=== PATIENT | female | born 1950 | race Caucasian/White ===

== ENCOUNTER 2016-10-24 10:13 | Inpatient (IN) | payer MEDICARE, OTHER ==
[~2016-10-24 10:13] MED LIST: ACETAMINOPHEN 1,000 MG/100 ML BTL IV ONE; BUPIVACAINE 0.5% W/EPI MPF 30 ML VIAL IVP ONE; BUPIVACAINE LIPOSOME 266MG/20ML VIAL IV ONE; CELECOXIB 100 MG CAPSULE PO ONE; FAMOTIDINE 20MG TABLET PO ONE; MECLIZINE 25 MG TABLET PO ONE; METOCLOPRAMIDE 10 MG TABLET PO ONE; TRANEXAMIC ACID 1,000 MG/10 ML ML IV ONE; VANCOMYCIN HCL 1 GM VIAL IVPB ONE; VANCOMYCIN HCL 1,000 MG in 0.9 % SODIUM CHLORIDE 250ML 250 ML IV ONE
[2016-10-24 12:00] LABS: ABO GROUP O; ANTIBODY SCREEN NEGATIVE (NEGATIVE); RH TYPE POSITIVE
[2016-10-24] MEDS ORDERED: METOCLOPRAMIDE HCL 10 MG/2 ML VIAL IVP PRN (13:20)
[2016-10-24] MEDS ORDERED: ACETAMINOPHEN W/ CODEINE 300MG/60MG TABLET PO PRN ×2 (13:20)
[2016-10-24] MEDS ORDERED: NALOXONE 0.4 MG/1 ML VIAL IVP PRN (13:20)
[2016-10-24] MEDS ORDERED: ACETAMINOPHEN 325 MG TAB PO PRN (13:20)
[2016-10-24] MEDS ORDERED: MAGNESIUM HYDROXIDE 30 ML UDC PO PRN (13:20)
[2016-10-24] MEDS ORDERED: KETOROLAC 30 MG/ML VIAL IVP PRN ×2 (13:20)
[2016-10-24] MEDS ORDERED: BISACODYL 10 MG SUPP RC PRN (13:20)
[2016-10-24] MEDS ORDERED: ZOLPIDEM TARTRATE 5 MG TABLET PO PRN (13:20)
[2016-10-24] MEDS ORDERED: TRAMADOL HCL 50 MG TABLET PO PRN (13:20)
[2016-10-24] MEDS ORDERED: ONDANSETRON HCL IV 4 MG/2 ML VIAL IVP PRN (13:20)
[2016-10-24] MEDS ORDERED: HYDROMORPHONE HCL 1MG/ML **SYRINGE IM PRN (13:20)
[2016-10-24] MEDS ORDERED: HYDROCODONE/APAP 5/325MG TABLET PO PRN (13:20)
[2016-10-24] MEDS ORDERED: MORPHINE SULFATE 5 MG/ML PFS IVP PRN ×4 (13:20)
[2016-10-24] MEDS ORDERED: PROMETHAZINE HCL 12.5 MG in 0.9 % SODIUM CHLORIDE 100ML 50 ML IVPB PRN (13:20)
[2016-10-24] MEDS ORDERED: AL HYDROX/MAG HYDROX 30ML UD PO PRN (13:20)
[2016-10-24] MEDS ORDERED: HYDROCODONE/APAP 7.5/325MG TABLET PO PRN (13:20)
[2016-10-24] MEDS ORDERED: DIPHENHYDRAMINE HCL 25 MG CAPSULE PO PRN (13:20)
[2016-10-24] MEDS ORDERED: HYDROMORPHONE HCL 2 MG/ML VIAL IM PRN (13:20)
[2016-10-24] MEDS ORDERED: ACETAMINOPHEN W/ CODEINE 300MG/30MG TABLET PO PRN ×2 (13:20)
[2016-10-24] MEDS ORDERED: TRANEXAMIC ACID 1,000 MG/10 ML ML IV ONE (14:00)
[2016-10-24] MEDS ORDERED: PROPOFOL 10 MG/ML VIAL IV ONE (14:00)
[2016-10-24] MEDS ORDERED: VANCOMYCIN HCL 1 GM VIAL IVPB ONE (14:00)
[2016-10-24] MEDS ORDERED: MIDAZOLAM HCL 2MG/2ML VIAL IV ONE (14:00)
[2016-10-24] MEDS ORDERED: BUPIVACAINE 0.5% W/EPI MPF 30 ML VIAL IVP ONE (14:00)
[2016-10-24] MEDS ORDERED: FENTANYL PF 100MCG/2ML VIAL IV ONE (14:00)
[2016-10-24] MEDS ORDERED: HYDROMORPHONE HCL 2 MG/ML VIAL IV ONE (14:00)
[2016-10-24] MEDS ORDERED: DEXTROSE 5 % AND 0.9 % NACL 1,000 ML IV PRN (15:15)
[2016-10-24] MEDS ORDERED: FLUTICASONE PROPIONATE 50MCG NASAL 16 GM BTL PRN (15:52)
--- NOTE | 2016-10-24 17:22 | Physical Therapy Tx Note ---
Physical Therapy Tx Note - Treatment Note Physical Therapy Tx Note: Detail (Patient was seen by PT this pm and had no sensation to light touch in LE's. The patient was given a walker to use while in the hospital. Will see the patient tomorrow am.)
[2016-10-24] MEDS: BUSPIRONE 5 MG TABLET PO SCH ×2 (19:38→21:41)
[2016-10-24] MEDS ORDERED: FLU VAC QS 2017-18 (INPT, 6MO+) 60MCG/0.5ML IM ONE (19:51)
[2016-10-24] MEDS: FERROUS SULFATE 325 MG TAB PO SCH (21:39)
[2016-10-24] MEDS: DOCUSATE SODIUM 100 MG CAPSULE PO SCH (21:39)
[2016-10-24] MEDS: LORATADINE 10 MG TABLET PO SCH (21:40)
[2016-10-24] MEDS: ACYCLOVIR 200 MG CAPSULE PO SCH (21:40)
[2016-10-25] MEDS: HYDROCODONE/APAP 5/325MG TABLET PO PRN ×3 (00:56→04:49)
[2016-10-25] MEDS: VANCOMYCIN HCL 1,000 MG in 0.9 % SODIUM CHLORIDE 250ML 250 ML IVPB SCH ×2 (00:56→14:09)
[2016-10-25] MEDS: PANTOPRAZOLE SODIUM 40 MG TABLET PO SCH (06:25)
[2016-10-25 06:38] LABS: HEMATOCRIT 33.5 % (35.0-47.0); HEMOGLOBIN 10.8 gm/dl (11.6-16.0)
[2016-10-25] MEDS: HYDROCODONE/APAP 7.5/325MG TABLET PO PRN ×3 (08:23→22:06)
[2016-10-25] MEDS: ACYCLOVIR 200 MG CAPSULE PO SCH ×2 (09:46→22:08)
[2016-10-25] MEDS: DOCUSATE SODIUM 100 MG CAPSULE PO SCH ×2 (09:46→22:06)
[2016-10-25] MEDS: FERROUS SULFATE 325 MG TAB PO SCH ×2 (09:47→22:06)
[2016-10-25] MEDS: BUSPIRONE 5 MG TABLET PO SCH ×3 (09:47→22:10)
--- NOTE | 2016-10-25 09:48 | Rehab Evaluation ---
Patient Information - Patient Information Diagnosis: R TKA Ordered Treatment: PT Evaluate and Treat Status: Initial Evaluation Surgery: Yes Date of Surgery: 10/24/16 (R TKA) Past Medical/Surgical Hx: PAST MEDICAL/SURGICAL HISTORY Past Surgical History appy c section hyst left knee scope rotator cuff tonsils PMH - Respiratory Hx Respiratory Disorders Yes Hx Sleep Apnea Yes Hx of CPAP Yes PMH - Cardiovascular Hx Cardiovascular Disorders Yes Hx Hypertension Yes: meds good control Hx Irregular Heartbeat Yes Hx Heart Murmur Yes: mild Exercise Tolerance Good Comment: varicose veins PMH - Neuro Hx Neurological Disorders Yes Hx Dizziness Yes: occasionally w fast position changes( vertigo) PMH - GI Hx Gastrointestinal Disorders Yes Hx Gastroesophageal Reflux Yes: controlled w meds PMH - Hx Genitourinary Disorders Yes Hx Kidney Stones Yes: lithotripsy 6 months ago Hx Urinary Tract Infection Yes: now-taking ABX PMH - Endocrine Hx Endocrine Disorders No PMH - Musculoskeletal Hx Musculoskeletal Disorders Yes Hx Arthritis Yes PMH - Psych Hx Psychiatric Problems Yes Hx Anxiety Yes: fair control Comment: claustrophobia PMH - Hematology/Oncology Hx Hematology/Oncology No Disorders Premorbid Status: Detail (The patient was previously ambulatory without device.) Social History: Detail (The patient lives with spouse in a single story ranch home with a step, landing, then another step at the enterance with one railing within reach. The patient's bathroome is equipped with a tub/shower combination with a tub bench and a standard toilet. The patient was vended a wheeled walker and has a standard cane and crutches.) Precautions: [place], Other (WBAT R LE) - Time With Patient Total Time Spent With Patient (Min): 30 Treatment Procedures: Detail (Initial Evaluation, gait training and review of HEP in a seated position including heel slides, gluteal sets, quad sets, ankle pumps, hamstring sets all x 5 reps.) Subjective Information - Subjective Information Per Patient (The patient had complaints of R knee pain.) Objective Data - Pain Pain Present: Yes Pain Intensity: 7 Pain Scale Used: Numeric (1 - 10) - Mental Status Patient Orientation: Oriented x3 - Visual Perception Appears within normal limits for therapeutic activities - ROM Not within normal limits (The patient's R knee AROM seated was 75 degrees flexion, -15 degrees extension) - Strength/Tone Not within normal limits (The patient's LE was not formally tested but is functional. Patient was able to acheive a SLR with R LE.) - Bed Mobility Independent (Independent supine to sit transfer.) - Transfers Independent (Independent sit to stand transfer.) - Balance Balance Sitting: Good Balance Standing: Good - Gait Detail (The patient ambulated with wheeled walker a distance of 75 feet x 1 WBAT on the R LE with assist of one to handle IV only.) Therapy Assessment - Therapy Assessment Detail (Patient was independent with bed mobility and transfers and required assist with ambulation to handle equipment only. Patient will progress well with ambulation and anticipate the patient will meet PT inpatient goals in 1 to 2 visits.) Patient Education - Patient Education Teaching Topic: Equipment Use (fitted and vended walker with wheels.), Exercise/ Activity (Reviewed HEP R TKA exercises) Response: Return Demonstration Teaching Method: Demonstration Teaching Recipient: Patient Barriers To Learning: None Problem List - Problem List Physical Therapy Problem List: Detail (1) Decreased R knee AROM 2) Decreased R LE strength 3) Inablility to ambulate on stairs) Goals - Goals Physical Therapy Goals: 1) The patient will ambulate on stairs with supervision/ independent. 2) The patient will be independent with HEP Prognosis - Prognosis Good Plan - Plan Physical Therapy Plan: PT 1-2 times a day for gait training on levels and stairs , bed mobility and transfer and instruction in HEP until PT goals are met.
[2016-10-25] MEDS ORDERED: RIVAROXABAN 10 MG TABLET PO SCH (10:00)
[2016-10-25] MEDS ORDERED: CELECOXIB 100 MG CAPSULE PO SCH (10:00)
[2016-10-25] MEDS ORDERED: LISINOPRIL 20 MG TABLET PO SCH (10:00)
[2016-10-25] MEDS ORDERED: LOTEMAX EYE OPTH SCH (10:00)
[2016-10-25] MEDS: TRAMADOL HCL 50 MG TABLET PO PRN (11:23)
--- NOTE | 2016-10-25 11:36 | Rehab Evaluation ---
Patient Information - Patient Information Diagnosis: R TKA Ordered Treatment: OT Evaluate and Treat Status: Initial Evaluation Surgery: Yes Date of Surgery: 10/24/16 (R TKA) Past Medical/Surgical Hx: PAST MEDICAL/SURGICAL HISTORY Past Surgical History appy c section hyst left knee scope rotator cuff tonsils PMH - Respiratory Hx Respiratory Disorders Yes Hx Sleep Apnea Yes Hx of CPAP Yes PMH - Cardiovascular Hx Cardiovascular Disorders Yes Hx Hypertension Yes: meds good control Hx Irregular Heartbeat Yes Hx Heart Murmur Yes: mild Exercise Tolerance Good Comment: varicose veins PMH - Neuro Hx Neurological Disorders Yes Hx Dizziness Yes: occasionally w fast position changes( vertigo) PMH - GI Hx Gastrointestinal Disorders Yes Hx Gastroesophageal Reflux Yes: controlled w meds PMH - Hx Genitourinary Disorders Yes Hx Kidney Stones Yes: lithotripsy 6 months ago Hx Urinary Tract Infection Yes: now-taking ABX PMH - Endocrine Hx Endocrine Disorders No PMH - Musculoskeletal Hx Musculoskeletal Disorders Yes Hx Arthritis Yes PMH - Psych Hx Psychiatric Problems Yes Hx Anxiety Yes: fair control Comment: claustrophobia PMH - Hematology/Oncology Hx Hematology/Oncology No Disorders Premorbid Status: Detail (The patient lives with spouse in a ranch home with a basement, she stays primarily on the 1st floor. She has 3 steps and alexei handrailings although railings are far apart. She has a tub/shower combination , grab bar and hand held shower and she usually stands to shower. She does have a tub bench as well. She has a standard height toilet, no grab bar. She is responsible for home mgmt, meal prep and laundry although her spouse will be assisting as needed. She has a 2 wheeled walker. The patient was previously ambulatory without device.) Precautions: [place], Other (WBAT R LE) - Time With Patient Total Time Spent With Patient (Min): 45 Treatment Procedures: Detail (OT eval low complexity) Subjective Information - Subjective Information Per Patient Objective Data - Pain Pain Present: Yes (08/15) - Mental Status Patient Orientation: Oriented x3 - Visual Perception Appears within normal limits for therapeutic activities - ROM Within normal limits (UE AROM functional) - Strength/Tone Within normal limits (UE strength functional) - Coordination Appears within normal limits for therapeutic activities - Transfers Independent (Ind with sit to stand) - Balance Balance Sitting: Good Balance Standing: Good - Sensation Intact - ADL's/IADL's Detail (Pt able to demonstrate Ind with total body dressing using modified dressing technique. She utilized sock aid to don socks.) Therapy Assessment - Therapy Assessment Detail (Pt demonstrates Ind with total body dressing using adaptive equipment and modified dressing techniques.) Problem List - Problem List Physical Therapy Problem List: Detail (1) Decreased R knee AROM 2) Decreased R LE strength 3) Inablility to ambulate on stairs) Occupational Therapy Problem List: Detail (No current OT problems identified.) Goals - Goals Physical Therapy Goals: 1) The patient will ambulate on stairs with supervision/ independent. 2) The patient will be independent with HEP Occupational Therapy Goals: No current OT goals identified. Prognosis - Prognosis Good Plan - Plan Physical Therapy Plan: PT 1-2 times a day for gait training on levels and stairs , bed mobility and transfer and instruction in HEP until PT goals are met. Occupational Therapy Plan: No further IP OT recommended at this time. Thank you for this referral.
--- NOTE | 2016-10-25 11:53 | Consult ---
Consult Order Detail - Reason for Consult Consult Date: 10/25/16 - Chief Complaint Chief Complaint: RIGHT KNEE ARTHROSIS HPI Consult - History of Present Illness Admitting Diagnosis: Osteoarthrits of the right hip s/p total athroplasty History of Present Illness: Mrs. Zaman is a 65 y/o female who is admitted post-operatively on 10/24. She had total right hip athroplasty without complication. 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 The patient reports pain at the site of surgery currently a 07/16 which she says settles down after immobility and medication. ROS Reviewed: No additional complaints except as noted below Constitutional: Reports: As per HPI. Denies: Chills, Fever, Malaise, Night sweats, Weakness, Weight change Eyes: Reports: As per HPI. Denies: Eye discharge, Eye pain, Photophobia, Vision change Past Medical History - SOCIAL HISTORY Smoking Status: Never smoker - RESPIRATORY Hx Respiratory Disorders: Yes Hx Sleep Apnea: Yes Hx of CPAP: Yes - CARDIOVASCULAR Hx Cardio Disorders: No Hx Hypertension: Yes (meds good control) Hx Irregular Heartbeat: No Comment:: varicose veins - NEURO Hx Neuro Disorders: Yes Hx Dizziness: Yes (occasionally w fast position changes(vertigo)) - GI Hx GI Disorders: Yes Hx Reflux: Yes (controlled w meds) - Hx Genitourinary Disorders: Yes Hx Kidney Stones: Yes (lithotripsy 6 months ago) Hx UTI: Yes (now-taking ABX) - ENDOCRINE Hx Endocrine Disorders: No - MUSCULOSKELETAL Hx Musculoskeletal Disorders: Yes Hx Arthritis: Yes - PSYCH Hx Psych Problems: Yes Hx Anxiety: Yes (fair control) Comment:: claustrophobia - HEMATOLOGY/ONCOLOGY Hx Hematology/Oncology Disorders: No Family Medical History Any Significant Family History?: Yes Hx Cancer: Mother (uterine ca), Brother/Sister, Grandparents Hx Diabetes: Mother (DM II), Grandparents Hx HTN: Mother (HTN) Hx Kidney Disease: Father (unspecified kidney disorder) Hx Resp Disorders: Father Hx Stroke: Father H&P Meds - Home Medications and Allergies Allergies Allergy/AdvReac Type Severity Reaction Status Date / Time sulfamethoxazole Allergy Intermediate RASH Verified 10/24/16 10:29 [From Bactrim] trimethoprim [From Bactrim] Allergy Intermediate RASH Verified 10/24/16 10:29 Penicillins Allergy PT UNSURE Verified 10/05/16 12:29 OF REACTION Physical Exam - Vital Signs Vital Signs: Vital Signs - Last 24 Hrs Temp Pulse Pulse Resp BP Pulse Ox 10/25/16 10:34 78 141/60 10/25/16 09:00 18 10/25/16 06:40 98.6 F 54 L 18 126/58 95 10/24/16 21:45 65 16 98 10/24/16 21:00 64 16 10/24/16 19:18 97.4 F L 64 18 135/51 94 L 10/24/16 18:30 97.7 F 70 18 138/66 97 10/24/16 18:14 97 10/24/16 18:00 98.4 F 70 18 157/93 95 10/24/16 17:30 97.3 F L 69 16 133/65 96 10/24/16 17:00 97.4 F L 61 16 126/66 93 L 10/24/16 16:30 97.4 F L 49 L 16 129/64 97 10/24/16 16:15 97.5 F L 51 L 16 130/56 94 L 10/24/16 16:00 97.4 F L 64 18 146/65 98 10/24/16 15:45 97.6 F 87 16 141/76 96 - General General Appearance: Alert, Oriented x3 - Head Head exam: Atraumatic, Normocephalic - Eye Eye exam: Normal appearance, PERRL, EOMI. negative: Conjunctival injection Pupils: Normal accommodation - ENT Nasal Exam: Normal inspection Mouth exam: Normal external inspection - Neck Neck exam: Normal inspection, Full ROM. negative: Lymphadenopathy, Thyromegaly - Respiratory Respiratory exam: Normal lung sounds bilaterally. negative: Accessory muscle use - Cardiovascular Cardiovascular Exam: Regular rate, Normal rhythm, Normal heart sounds - GI/Abdominal GI/Abdominal exam: Soft, Normal bowel sounds - Rectal Rectal exam: Deferred - exam: Deferred - Extremities Extremities exam: Normal inspection, Other (pt wearing compression stalkings and pneumatic compression stalkings) - Neurological Neurological exam: Alert, Altered, CN II-XII intact - Psychiatric Psychiatric exam: negative: Agitated, Anxious Results - Labs Result Diagrams: 10/25/16 06:10 Labs Last 24 Hours: Laboratory Results - last 24 hr 10/24/16 10/25/16 10:20 06:10 Hgb 10.8 L Hct 33.5 L ABO Group O Rh Factor Positive Antibody Screen Negative Assessment and Plan - Assessment and Plan (1) Hypertension Plan: - most recent BP 141/60 - continue home BP medications: Lisinopril 20mg QD Current Visit: Yes Status: Chronic Qualifiers: Hypertension type: essential hypertension Qualified Code(s): I10 - Essential (primary) hypertension Base Code: I10 - ESSENTIAL (PRIMARY) HYPERTENSION (2) GERD (gastroesophageal reflux disease) Plan: - patient has history of reflux and reports recent daily use of NSAIDS and takes ASA 81 mg daily. - cont Protonix 40mg PO daily. Current Visit: Yes Status: Acute Base Code: K21.9 - GASTRO-ESOPHAGEAL REFLUX DISEASE WITHOUT ESOPHAGITIS (3) Anxiety Plan: - patient on Buspirone. Will resume home dosing Current Visit: Yes Status: Acute Base Code: F41.9 - ANXIETY DISORDER, UNSPECIFIED (4) History of UTI Plan: - pt report recent diagnosis of UTI but has not had symptoms. - as per pt pre-operative urinalysis was positive for uti, - on day #5/5 Cipro 500mg BID Current Visit: Yes Status: Acute Base Code: Z87.440 - PERSONAL HISTORY OF URINARY (TRACT) INFECTIONS (5) Herpes keratitis Plan: - continues to use Loteprednol 0.5% opthalmic solution daily and Acyclovir 400mg BID Current Visit: Yes Status: Chronic Base Code: B00.52 - HERPESVIRAL KERATITIS - Disposition Disposition: The patients's chronic medical conditions appear stable at this time and she is receiving her home medications as prescribed. If in the event we are needed for any new issues or concerns we will address them at that time. Continued post- operative management as per surgery. Medicine will sign-off at this time.
--- NOTE | 2016-10-25 14:33 | Physical Therapy Tx Note ---
Physical Therapy Tx Note - Treatment Note Tolerated: Good (Patient moving quite well now, getting into and out of bed with SBA only. Sit to stand also with SBA only. Able to ambulate with FWW about 20 feet to stairs then ambulated down three steps with use of rail and FWW folded then pivoted around and ambulated back up three steps with folded walker and rail. Mentioned using cane at home as it is easier on stairs. Ambulated about another 100 feet with FWW WBAT and contact guard assist only with good technique. Into bed independently and worked through exercises: heel slides, SLR , glut, ham and quad sets then ankle pumps. Re-attached everything including cryocuff, compressive stockings and nurse came in to administer last anti- biotic.) Total Time Spent With Patient: 30 Physical Therapy Tx Note: Detail (See above.) Physical Therapy Problem List: Detail (1) Decreased R knee AROM 2) Decreased R LE strength 3) Inablility to ambulate on stairs) Physical Therapy Goals: 1) The patient will ambulate on stairs with supervision/ independent. 2) The patient will be independent with HEP Prognosis: Good (Patient has passed skills for discharge when nursing ready and doctor releases. Able to use steps safely and do all exercises, walk safely with FWW.) Physical Therapy Plan: PT 1-2 times a day for gait training on levels and stairs , bed mobility and transfer and instruction in HEP until PT goals are met.
[2016-10-25] MEDS: LORATADINE 10 MG TABLET PO SCH (22:06)
[2016-10-26] MEDS: HYDROCODONE/APAP 7.5/325MG TABLET PO PRN ×2 (02:00→06:06)
[2016-10-26] MEDS: PANTOPRAZOLE SODIUM 40 MG TABLET PO SCH (06:06)
[2016-10-26 07:01] LABS: HEMATOCRIT 35.4 % (35.0-47.0); HEMOGLOBIN 11.5 gm/dl (11.6-16.0)
[2016-10-26] MEDS: TRAMADOL HCL 50 MG TABLET PO PRN (08:18)
--- NOTE | 2016-10-26 17:10 | Operative Note ---
DATE OF SURGERY: 10/24/2016 PREOPERATIVE DIAGNOSIS: Right knee arthrosis. POSTOPERATIVE DIAGNOSIS: Right knee arthrosis. OPERATION: Right total knee arthroplasty. Surgeon: Beau Gu MD Anesthesia: Spinal. Anesthesia Provider: YRIS Arshad COMPLICATIONS: None. Estimated Blood Loss: Minimal. TOURNIQUET TIME: Sixty minutes. OPERATIVE FINDINGS: [id number] medial compartment arthrosis. COMPONENTS PLACED: A 2 g vancomycin cemented [employer] II Oxinium size 4 femoral component, size 4 tibial baseplate, a 9 mm thick tibial poly insert, and a 32 mm cemented patellar component. INDICATIONS FOR OPERATION: This is a 65-year-old female who has had persistent pain and dysfunction in the knee for several years. Failed nonoperative treatment. Has been scheduled for knee replacement. I explained all risks and benefits in detail for her diagnosis and procedures including but not limited to infection, nerve injury, vessel injury, pain, numbness, tingling, periprosthetic fracture, need for resection arthroplasty if components infected or loosened, blood clot, need for anticoagulation to prevent blood clots, risks associated with the medication, and all of his questions were clearly answered, her course was outlined and she agreed to proceed. PROCEDURE: The patient brought to the OR, placed in the supine position, prepped for surgery. Spinal anesthesia was induced. The right lower extremity and knee prepped and draped in sterile fashion. The right knee is prepped using Chloraprep and draped. Intraoperative timeout was performed. Next, the leg was exsanguinated with Esmarch. The knee was flexed, tourniquet inflated to 250 mmHg pressure. Skin and subcutaneous tissues dissected down to the capsule. Incised the capsule medially along the medial border of the patella to the tibial tubercle. Incised the vastus medialis in line with its fibers, in a mid vastus approach. Everted the patella, partially resected the peripatellar fat pad, elevated capsule subperiosteally medially. Flexed the knee. She had [id number] medial compartment arthrosis. Drilled intracondylar drill hole. Inserted intramedullary guide jackson, 6-degree cutting block, aligned distal femoral condyles and pinned it in place for the +2 mm position and cut the distal femoral condyle. Next, we placed a sizing jig on the distal femoral condyle, sized it to be a size 4. Through previously-placed pin holes, placed the size 4 cutting jig, dialed the anterior cut anteriorly so it would come out flush without notching. We cut a good cut there, pinned the cutting jig and cut the remaining chamfer cuts in the usual fashion. Next, we placed a trial size 4 femoral component and centered it, pinned it, and then reamed out and box osteotome bone block. Next, then attention turned to the tibia. Seated the external alignment jig, seated the spikes in the tibial tubercle groove 2 fingerbreadths distally off the anterior tibial cortex for a slight posterior slope in reference for a 7 mm cut off the higher lateral plateau and then cut the tibia. We rechecked alignment using a drop jackson after we pinned the cutting jig in place and then crosspinned the cutting jig to complete the fixation, then cut the tibia. We had a good cut. Next, we removed osteophytes of posterior femoral condyles. Used the curved osteotome, checked flexion and extension gaps. Had symmetric flexion/extension gaps with a 9 mm thick poly insert, 2-3 mm of varus/valgus laxity in flexion/extension. Overall alignment cuts in extension anatomic valgus orientation alignment jackson centered in the hip joint and ankle joint. Next, took the knee into flexion, sized the tibial baseplate to size 4, again replaced all trial components, set the rotation of the tibial baseplate again in extension using alignment jackson centered on the hip joint and ankle joint. Marked with electrocautery egan on the anterior tibial cortex off the laser egan on the tibial baseplate. Then attention turned to the patella. Checked the thickness of the patella. It was 21 mm. Set the cutting jig at 11 mm to 12 to allow for a 9 mm thick poly insert. We cut the patella, remeasured to size 11 to 12. Measured to be 32 mm centered medial as much as possible. Drilled 3 peg holes. Overdrilled them and then placed a trial patella component. Then mixed cement. The patella tracked nicely with full extension and flexion to 140 degrees with symmetrical flexion/extension gaps. Next, we took the knee in flexion, changed gloves, brought in a clean sheet, copiously irrigated with antibiotic solution. Seated the tibial baseplate with the previously-placed electrocautery egan and pinned it in place and reamed out and punched the keel hole. We placed a bone plug in the femoral canal hole and placed a drill in the tibial hole and impacted down with cement. Impacted down the tibial component first and then the femoral component. replaced the tibial poly liner and held the knee in extension. Then clamped down the patellar component until the cement hardened. Once the cement hardened, we took the knee in flexion, removed the trial tibial component, irrigated copiously, removed excess cement around the posterior recesses and edge of the components. We irrigated and then injected 0.5% Marcaine with epinephrine, 2 g tranexamic acid, and Exparel mixture with several sticks throughout the posterior, medial, and lateral capsule, the medial and lateral periosteum, femoral condyle, vastus medialis subcu regions with our mixture. Distracted the knee with bone hook and sponge and then impacted down the real tibial poly insert and verified it was interlocked medially and laterally. Final range of motion and stability were the same. We irrigated copiously. Repaired the capsule with running #2 Quill, irrigated again, closed the knee with 2-0 Vicryl and a zip line was applied. The patient tolerated the procedure well. No intraoperative complications. Sponge and needle counts correct. To recovery stable, discharged to floor, likely discharge in 1-2 days. DINAH
== END 2016-10-26 10:00 | disposition home or self-care (01) | DRG 470 ==
LOC: MEDSURG 10:13
PROVIDERS: ADMIT Orthopaedic Surgery; ATTEND Orthopaedic Surgery
PROC: 0SRC0J9 Replacement of Right Knee Joint with Synthetic Substitute, Cemented, Open Approach (ICD-10-PCS; principal; 2016-10-24 12:30)
DX: M17.11 Unilateral primary osteoarthritis, right knee (principal); I10 Essential (primary) hypertension
CPT/HCPCS: 85014; 85018; 86850; 86900; 86901; 90686; 94760; 94761; 97110; 97116; 97165; J2405; J2765; J7050